=== PATIENT | female | born 1950 | race Caucasian/White ===

== ENCOUNTER → 2018-09-09 | Outpatient (CLI) | payer MEDICARE ==
[~2018-09-09] MED LIST: METF500T17 PO
== END | disposition home or self-care (01) ==
LOC: EDSTATUS 09:00 → CFH 09:04 → EDSTATUS 09-17 10:15
PROVIDERS: ATTEND Family Medicine
DX: M81.0 Age-related osteoporosis without current pathological fracture (principal); N64.4 Mastodynia
CPT/HCPCS: 76642; 77066; 77080; G0279

== ENCOUNTER → 2020-02-29 | Outpatient (CLI) | payer MEDICARE | END | disposition home or self-care (01) | LOC: RAD 07:30 | PROVIDERS: ATTEND Family Medicine | DX: E04.2 Nontoxic multinodular goiter (principal); R13.12 Dysphagia, oropharyngeal phase | CPT/HCPCS: 74240; 76536 ==